=== PATIENT | female | born 1995 | race Caucasian/White ===

== ENCOUNTER 2018-04-24 09:49 | Emergency (ER) | payer OTHER, SELFPAY ==
[2018-04-24] MEDS ORDERED: AMOXicillin 250 MG CAP ONE (10:17)
== END 2018-04-24 10:21 | disposition home or self-care (01) ==
LOC: BURERS 09:49
DX: J20.9 Acute bronchitis, unspecified (principal); F17.210 Nicotine dependence, cigarettes, uncomplicated; Z79.899 Other long term (current) drug therapy
CPT/HCPCS: 99283

== ENCOUNTER 2020-11-19 13:56 | Emergency (ER) | payer SELFPAY ==
[2020-11-19] MEDS ORDERED: methylPREDNISolone Sod Succ/PF 125 MG/2 ML VIAL ONE (14:15)
== END 2020-11-19 14:30 | disposition home or self-care (01) ==
LOC: BURERS 13:56
DX: T78.40XA Allergy, unspecified, initial encounter (principal); F17.210 Nicotine dependence, cigarettes, uncomplicated
CPT/HCPCS: 96372; 99283; J2930